=== PATIENT | male | born 1980 | race American Indian/Alaskan Native ===

== ENCOUNTER 2017-05-08 00:21 | Emergency (ER) | payer OTHER ==
[2017-05-08 00:37] VITALS: O2SAT 98
[2017-05-08] MEDS ORDERED: Tetracaine 0.5% Ophth 2 ML BOTTLE OU ONE (00:58)
[2017-05-08] MEDS ORDERED: Tetracaine 0.5% Ophth (OR ONLY) ONE (00:59)
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
[2017-05-08] MEDS ORDERED: Fluorescein 1 mg Ophthalmic Strip ONE (01:26)
[2017-05-08 01:38] VITALS: BP 119/69; PULSE 52; RESP 17; TEMP 98.1
== END 2017-05-08 02:15 | disposition home or self-care (01) ==
LOC: C.ER 00:21
DX: H57.8 Other specified disorders of eye and adnexa (principal)